=== PATIENT | female | born 1985 | race Caucasian/White ===

== ENCOUNTER 2016-05-09 10:30 | Inpatient (IN) | payer OTHER ==
[~2016-05-09] VITALS: Ht 162.6 cm; Wt 74.8 kg
[2016-05-09] VITALS (12 sets, daily range): BP systolic 107–140; BP diastolic 47–75; PULSE 49–82; RESP 17–18; TEMP 97.3–98; O2SAT 96–97
--- NOTE | 2016-05-09 15:27 | HHI.HP ---
HPI Chief Complaint Here for repeat Date Seen: May 09, 2016 Travel History International Travel<30 Days: No Contact w/Intl Traveler<30Days: No History of Present Illness HPI Patient is a 31 year old at 39-2/7 weeks gestation who presents today for repeat CXN. She denies any vaginal bleeding or discharge. No gush or leaking of fluid. No contractions. She has had some lower back pain over the past couple days. Positive movement. care with [facility]. History Past Medical History Medical History: Denies Significant Hx Obstetric History Obstetric History s/p Past Surgical History Narrative Surgical x 1 Family History Family History: Negative Social History Alcohol Use: No Tobacco Use: No Substance Abuse: No Allergies-Medications (Allergen,Severity, Reaction): Coded Allergies: No Known Allergies (Unverified , 05/09/16) Review of Systems Except as stated in HPI: all other systems reviewed are Neg General / Constitutional: No: Fever, Chills Eyes: No: Visual changes HENT: No: Headaches Cardiovascular: No: Chest Pain or Discomfort Respiratory: No: Short of Breath Gastrointestinal: No: Nausea, Vomiting, Abdominal Pain Genitourinary: Pelvic Pain, No: Discharge, Vaginal Bleeding Musculoskeletal: No: Edema Psychiatric: No: Substance Abuse Physical Exam Narrative GENERAL: Well-nourished, well-developed patient. SKIN: Warm and dry. HEAD: Normocephalic and atraumatic. EYES: No scleral icterus. No injection or drainage. ENT: No nasal drainage noted. Mucous membranes pink. Airway patent. NECK: Supple, trachea midline. No JVD. CARDIOVASCULAR: Regular rate and rhythm without murmurs, gallops, or rubs. RESPIRATORY: Breath sounds equal bilaterally. No accessory muscle use. ABDOMEN/GI: Abdomen soft, non-tender, bowel sounds present, no rebound, no guarding Gravid to 39 weeks size GENITOURINARY: Membranes: intact Uterine Contractions: irregular FHT's: Category: I Baseline: 140 Reactive: + Variability: moderate Decels: none EXTREMITIES: No cyanosis or edema. BACK: Nontender without obvious deformity. No CVA tenderness. NEUROLOGICAL: Awake and alert. Motor and sensory grossly within normal limits. Normal speech. Data Data Vital Signs Reviewed: Yes Orders Admit To Inpatient (05/09/16 ) Code Status (05/09/16 15:20) Vital Signs (Adult) .ON ADMISSION (05/09/16 15:20) Activity Oob Ad Ana (05/09/16 15:20) ^ Heart (05/09/16 15:20) Urinary Catheter Management CLAY.Q8H (05/09/16 15:20) ^ Preps (05/09/16 15:20) Scd / Jean / Foot Pump CLAY.QSHIFT (05/09/16 15:20) ^ Ultrasound For Locatio (05/09/16 15:20) Diet Npo (05/09/16 Dinner) Lactated Ringer's 1000 Ml Inj (Lr 1000 M (05/09/16 15:20) Lactated Ringer's 1000 Ml Inj (Lr 1000 M (05/09/16 15:50) Cefazolin 2 Gm Premix (Ancef 2 Gm Premix (05/09/16 16:30) Citric Acid-Sodium Citrate Liq (Bicitra (05/09/16 17:00) Type And Screen (05/09/16 15:20) Complete Blood Count With Diff (05/09/16 15:20) Assessment/Plan Assessment and Plan 31 year old at 39-2/7 weeks gestation. 1. IUP- Category I tracing, reassuring. 2. Repeat - will give 2g Ancef IV pre-operatively. 3. GBS negative dw Ana Rosa Ledezma MD R2 May 09, 2016 15:27
[2016-05-09] MEDS ORDERED: LACTATED RINGER'S 1000 ML INJ 1,000 ML IV SCH (16:00)
[2016-05-09] MEDS ORDERED: LACTATED RINGER'S 1000 ML INJ 1,000 ML IV ONE (16:00)
[2016-05-09] MEDS ORDERED: ceFAZolin 2 GM PREMIX 50 ML IV SCH (16:30)
--- NOTE | 2016-05-09 16:38 | HHI.HP ---
History & Physical H&P viviane History International Travel<30 Days: No Contact w/Intl Traveler<30Days: No Known Affected Area: No History of Present Illness HPI This patient is a 31-year-old at 3 9 weeks of [facility], presents now for consult. She had previous section with her first baby on an emergent basis and now wants a repeat . She has no complaints problems baby is active she has no pain bleeding or rupture the membranes. His had an uneventful course first have her care was in [place] and she speaks Khmer only, second half of her from about 30 weeks on has been here starting in late February. Patient has her records from her visits in [place] were only revisit she had an ultrasound and we have a 12 week ultrasound establishes her gestational criteria her due date is 05/14/16 Para: 1 : 2 History (Limited) History Obstetric History Obstetric History 1 Past Surgical History Narrative Surgical 1 Family History Family History: Negative Social History Alcohol Use: No Tobacco Use: No Substance Abuse: No Allergies-Medications Allergies-Medications ROS Review of Systems General / Constitutional: No: Fever, Weight Gain, Chills, Other Eyes: No: Diploplia, Blurred Vision, Visual changes, Pain, Photophobia HENT: No: Headaches, Vertigo, Lightheadedness Cardiovascular: No: Irregular Rhythm, Chest Pain or Discomfort, Palpitations, Tachycardia, Syncope, Varicosities, Edema, Cyanosis Respiratory: No: Cough, Short of Breath, Other Gastrointestinal: No: Nausea, Vomiting, Diarrhea Genitourinary: No: Decreased Urinary Output, Oliguria Musculoskeletal: No: Limited ROM, Weakness, Cramping, Edema, Pain Skin: No Rash, No Itching, No Dryness, No Lumps, No Change in Pigmentation, No Change in Nails, No Alopecia, No Lesions Neurologic: No: Weakness, Dizziness, Syncope, Focal Abnormalities, Coordination Problem, Headache, Slurred Speech, Seizures Psychiatric: No: Depression, Suicidal Ideations, Homicidal Ideation Endocrine: No: Heat Intolerance, Cold Intolerance, Polydipsia, Polyuria, Other Physical Exam Physical Exam Narrative GENERAL: Well-nourished, well-developed patient. SKIN: Warm and dry. HEAD: Normocephalic and atraumatic. EYES: No scleral icterus. No injection or drainage. ENT: No nasal drainage noted. Mucous membranes pink. Airway patent. NECK: Supple, trachea midline. No JVD. CARDIOVASCULAR: Regular rate and rhythm without murmurs, gallops, or rubs. RESPIRATORY: Breath sounds equal bilaterally. No accessory muscle use. BREASTS: Bilateral exam showed no masses , no retractions, no nipple discharge. ABDOMEN/GI: Abdomen soft, non-tender, bowel sounds present, no rebound, no guarding Gravid to [-term] weeks size Fundal Height: [-35 cm] Data Data [facility] MDM Interpretation(s) Patient is a 31-year-old previous 1 presenting for repeat section consultation. She has no complaints or problems baby is active is had an uneventful course first For care in [place] last half year and we have records from the [place] visits ultrasounds each time with 12 week scan is the earliest one confirming a due date of 05/14/16 Plan Plan schedule the patient for repeat on 05/09/16 which should be 39 weeks and several days. She understands that timing to present here 2 hours prior to surgery and be nothing by mouth after midnight the night before Disposition: 01 DISCHARGE HOME Condition: Stable Samy Madison II, MD Apr 21, 2016 13:52 Samy Madison II, MD May 09, 2016 16:38
[2016-05-09 16:42] LABS: AUTOMATED NEUTROPHIL # 4.6 TH/MM3 (1.8-7.7); BASOPHIL # 0.1 TH/MM3 (0-0.2); EOSINOPHIL # 0.1 TH/MM3 (0-0.4); HEMATOCRIT 39.2 % (35.0-46.0); LYMPH % 31.9 % (9.0-44.0); LYMPHOCYTE # 2.5 TH/MM3 (1.0-4.8); MEAN CELL VOLUME 88.9 FL (80.0-100.0); MEAN CORPUSCULAR HEMOGLOBIN 30.5 PG (27.0-34.0); MEAN CORPUSCULAR HGB CONC 34.3 % (32.0-36.0); MONO % 7.8 % (0.0-8.0); NEUT % 58.3 % (16.0-70.0); PLATELET COUNT 121 TH/MM3 (150-450); RED BLOOD COUNT 4.41 MIL/MM3 (4.00-5.30); RED CELL DISTRIBUTION WIDTH 13.1 % (11.6-17.2); WHITE BLOOD COUNT 7.9 TH/MM3 (4.0-11.0)
[2016-05-09] MEDS ORDERED: OXYTOCIN 10 UNIT/ML AMP ONE ×2 (16:48→17:00)
[2016-05-09 16:52] LABS: HEMO FLAGS AUTO DIFF
[2016-05-09] MEDS ORDERED: CITRIC ACID-SODIUM CITRATE LIQ 30 ML UDC PO SCH (17:00)
[2016-05-09] MEDS ORDERED: DICLOFENAC SODIUM 37.5 MG/ML VIAL IV PUSH ONE (17:00)
[2016-05-09 17:07] LABS: BACTERIA, URINE FEW /hpf; BLOOD, URINE SMALL (NEG); COMMENT (UR) CULT NOT INDICATED; CULTURE IF INDICATED CULT NOT INDICATED; GLUCOSE,URINE NEG (NEG); HYALINE CAST, URINE 2 /lpf (RARE); KETONE, URINE NEG (NEG); MUCUS URINE FEW /lpf (OCC); NITRITE,URINE NEG (NEG); PH, URINE 5.5 (5.0-8.5); SQUAMOUS EPITHELIAL CELL URINE 7 /hpf (0-5); URINE COLOR YELLOW (YELLW/STRAW)
[2016-05-09 17:40] LABS: SCAN/DIFF AUTO DIFF CONFIRMED
[2016-05-09] MEDS ORDERED: MORPHINE SULFATE PF 5 MG/10 ML VIAL ONE (18:45)
[2016-05-09] MEDS ORDERED: SODIUM CHLORIDE 0.9% FLUSH 5 ML FLUSH IV PRN (19:00)
[2016-05-09] MEDS ORDERED: OXYTOCIN 30 UNITS-500ML PREMIX 500 ML IV ONE (19:00)
[2016-05-09] MEDS ORDERED: ACETAMINOPHEN 325 MG TAB PO PRN (19:00)
[2016-05-09] MEDS ORDERED: ONDANSETRON HCL 4 MG/2 ML VIAL IV PUSH PRN (19:00)
[2016-05-09] MEDS ORDERED: ZOLPIDEM TARTRATE 5 MG TAB PO PRN (19:00)
[2016-05-09] MEDS ORDERED: DOCUSATE SODIUM 50 MG/SENNA 8.6 MG TAB PO PRN (19:00)
[2016-05-09] MEDS ORDERED: oxyCODONE/ACETAMINOPHEN 5 MG/325 MG TAB PO PRN (19:00)
[2016-05-09] MEDS ORDERED: LACTATED RINGER'S 1,000 ML BAG IV ONE (19:11)
[2016-05-09] MEDS ORDERED: ONDANSETRON HCL 4 MG/2 ML VIAL IV PUSH ONE (19:11)
[2016-05-09] MEDS ORDERED: EPIDURAL-NO SYSTEMIC NARCOTICS XX PRN (20:30)
[2016-05-09] MEDS ORDERED: EPIDURAL-DO NOT ADMINISTER ANTICOAGULANTS XX PRN (20:30)
[2016-05-09] MEDS ORDERED: EPIDURAL-DIPHENHYDRAMINE HCL 50 MG CAP PO PRN (20:30)
[2016-05-09] MEDS ORDERED: EPIDURAL-NALOXONE HCL 0.4 MG/ML AMP IV PRN (20:30)
[2016-05-09] MEDS ORDERED: EPIDURAL-DIPHENHYDRAMINE HCL 50 MG/ML VIAL IV PUSH PRN (20:30)
[2016-05-09] MEDS ORDERED: SODIUM CHLORIDE 0.9% FLUSH 5 ML FLUSH IV SCH (21:00)
[2016-05-10] MEDS ORDERED: LACTATED RINGER'S 1000 ML INJ 1,000 ML IV SCH
[2016-05-10 00:11] VITALS: BP 114/62; PULSE 49; RESP 17; TEMP 97.3
[2016-05-10 03:54] VITALS: BP_SYST 104; BP_SYST 110; BP_DIAS 57; BP_DIAS 68; PULSE 62; PULSE 65; RESP 17; RESP 18; TEMP 98.3
[2016-05-10] MEDS ORDERED: OXYTOCIN 30 UNITS-500ML PREMIX 500 ML IV PRN (05:00)
[2016-05-10 06:04] LABS: BASOPHIL % 0.4 % (0.0-2.0); EOSINOPHIL # 0.1 TH/MM3 (0-0.4); EOSINOPHIL % 0.9 % (0.0-4.0); HEMATOCRIT 34.6 % (35.0-46.0); LYMPH % 17.1 % (9.0-44.0); LYMPHOCYTE # 1.6 TH/MM3 (1.0-4.8); MEAN CELL VOLUME 88.9 FL (80.0-100.0); MEAN CORPUSCULAR HEMOGLOBIN 30.8 PG (27.0-34.0); MEAN CORPUSCULAR HGB CONC 34.6 % (32.0-36.0); MONO % 6.7 % (0.0-8.0); NEUT % 74.9 % (16.0-70.0); PLATELET COUNT 89 TH/MM3 (150-450); RED BLOOD COUNT 3.89 MIL/MM3 (4.00-5.30); RED CELL DISTRIBUTION WIDTH 12.7 % (11.6-17.2); WHITE BLOOD COUNT 9.4 TH/MM3 (4.0-11.0)
[2016-05-10 06:12] LABS: APTT (PATIENT) 27.1 SEC (24.3-30.1); INTERNATIONAL NORMALIZED RATIO 0.9 RATIO
[2016-05-10 06:20] LABS: HEMO FLAGS AUTO DIFF
[2016-05-10 07:39] LABS: PLATELET ESTIMATE SMEAR LOW (NORMAL); PLATELET MORPHOLOGY ENLARGED (NORMAL); SCAN/DIFF AUTO DIFF CONFIRMED
--- NOTE | 2016-05-10 07:46 | HHI.OB ---
Subjective Post Operative Day: 1 Remarks Postoperative day number 1. AFVSS overnight. Pain controlled. Incision not draining. Decreased lochia. Denies dysuria. No breast tenderness. She is feeding the baby via breast. Appetite good. No nausea or vomiting. Positive flatus. Negative bowel movement. Ambulating well. Denies calf pain, shortness of breath, or cough. Otherwise, she is doing well this morning and has no other complaints. Objective Vitals/I&O Vital Signs Date Time Temp Pulse Resp B/P Pulse Ox O2 Delivery O2 Flow Rate FiO2 05/10/16 03:54 98.3 05/10/16 03:54 62 17 05/10/16 03:54 104/57 05/10/16 03:54 65 18 110/68 05/10/16 00:11 97.3 17 05/10/16 00:11 49 114/62 05/09/16 20:40 97.7 52 18 125/72 05/09/16 19:35 97.3 05/09/16 19:32 140/47 05/09/16 19:32 97 05/09/16 19:31 49 05/09/16 19:31 18 05/09/16 19:17 96 05/09/16 19:16 107/58 05/09/16 19:14 18 05/09/16 19:13 51 05/09/16 19:04 57 18 126/72 96 05/09/16 18:54 53 138/75 05/09/16 18:54 53 138/75 05/09/16 18:54 98.0 17 97 05/09/16 18:54 98.0 17 97 05/09/16 16:00 82 123/67 05/09/16 15:55 70 130/74 Result Diagram: 05/10/16 0436 Objective Remarks GENERAL: Well-nourished, well-developed patient. CARDIOVASCULAR: Regular rate and rhythm without murmurs, gallops, or rubs. RESPIRATORY: Breath sounds equal bilaterally. No accessory muscle use. ABDOMEN/GI: Abdomen soft, non-tender, bowel sounds present. Incision: Clean, dry and intact. With juan Fundus: Firm, non-tender at umbilicus. GENITOURINARY: Light to moderate bleeding. EXTREMITIES: No cyanosis or edema, non-tender, without signs of DVT. Medications and IVs Current Medications Medications (Trade) Dose Ordered Sig/Berhane Route Start Time Stop Time Status Last Admin (Lr 1000 ml Inj) 1,000 ml @ 100 mls/hr Q10H IV 05/10/16 00:00 05/10/16 19:59 05/10/16 05:01 (NS Flush) 2 ml BID IV 05/09/16 21:00 (NS Flush) 2 ml UNSCH PRN IV 05/09/16 19:00 (Mylicon Chew) 80 mg QID PRN PO 05/09/16 19:00 (Tylenol) 650 mg Q6H PRN PO 05/09/16 19:00 (Motrin) 600 mg Q6H PRN PO 05/09/16 19:00 (Percocet 5-325 Mg) 1 tab Q4H PRN PO 05/09/16 19:00 Oxycodone/ Acetaminophen 2 tab 2 tab Q4H PRN PO 05/09/16 19:00 (Ancef Inj/NS Inj) 100 ml @ 200 mls/hr Q8H IV 05/10/16 03:00 05/10/16 11:29 05/10/16 05:02 (Juliane-Colace) 2 tab Q12H PRN PO 05/09/16 19:00 (Ambien) 5 mg HS PRN PO 05/09/16 19:00 (M-M-R Ii Inj) 0.5 ml ONCE ONCE SQ 05/10/16 16:00 05/10/16 16:01 (Boostrix Inj) 0.5 ml ONCE ONCE IM 05/10/16 16:00 05/10/16 16:01 (Zofran Inj) 4 mg Q6H PRN IV PUSH 05/09/16 19:00 Miscellaneous Information NO SYSTEMIC NARCOTICS TO BE GIVEN FO... UNSCH PRN XX 05/09/16 20:30 05/10/16 20:29 (Narcan Inj) 0.4 mg UNSCH PRN IV 05/09/16 20:30 05/10/16 20:29 (Benadryl Inj) 25 mg Q6H PRN IV PUSH 05/09/16 20:30 05/10/16 20:29 05/10/16 00:40 (Benadryl) 50 mg Q6H PRN PO 05/09/16 20:30 05/10/16 20:29 Miscellaneous Information ALL NURSING DEPARTMENTS UNSCH PRN XX 05/09/16 20:30 05/10/16 20:29 Assessment/Plan Problem List: (1) care following delivery Assessment and Plan 31 y/o female who is POD# 1 s/p CXN. -Continue routine care. -Percocet and Motrin PRN pain. -Encouraged OOB. Advised pelvic rest for 6 wks. Will need a f/u appt. in 1 wk for incision check. -Re: ctrl, she currently undecided. -D/c in 1-2 more days. [facility] OB attending Discharge Planning Discharged home next one to 2 days Ab Rosario MD R2 May 10, 2016 07:46
[2016-05-10] MEDS: oxyCODONE/ACETAMINOPHEN 5 MG/325 MG TAB PO PRN ×4 (07:49→23:30)
[2016-05-10] MEDS: IBUPROFEN 600 MG TAB PO PRN ×3 (07:49→19:27)
[2016-05-10 08:30] VITALS: BP 116/62; PULSE 67; RESP 17; TEMP 99.5
[2016-05-10] MEDS ORDERED: DIPHTH/TETANUS/ACEL PERTUSSIS (BOOSTER) 0.5 ML VIAL/PFS IM ONE (16:00)
[2016-05-10] MEDS ORDERED: MEASLES, MUMPS, RUBELLA VACCINE 0.5 ML VIAL SQ ONE (16:00)
[2016-05-10] MEDS: SIMETHICONE 80 MG CHEWABLE TAB PO PRN (17:20)
[2016-05-10 19:52] VITALS: BP 127/81; PULSE 103; RESP 18; TEMP 98.9
[2016-05-10 23:58] VITALS: BP 104/61; PULSE 84; RESP 18; TEMP 98.1
[2016-05-11] MEDS: IBUPROFEN 600 MG TAB PO PRN ×2 (04:12→11:23)
[2016-05-11] MEDS: oxyCODONE/ACETAMINOPHEN 5 MG/325 MG TAB PO PRN ×2 (04:13→11:23)
--- NOTE | 2016-05-11 07:19 | HHI.OB ---
Subjective Post Operative Day: 2 Remarks Postoperative day number 2. AFVSS overnight. Pain controlled. Incision not draining. Decreased lochia. Denies dysuria. No breast tenderness. She is feeding the baby via breast. Appetite good. No nausea or vomiting. Positive flatus. Negative bowel movement. Ambulating well. Denies calf pain, shortness of breath, or cough. Otherwise, she is doing well this morning and has no other complaints. Objective Vitals/I&O Vital Signs Date Time Temp Pulse Resp B/P Pulse Ox O2 Delivery O2 Flow Rate FiO2 05/10/16 23:58 98.1 18 05/10/16 23:58 84 104/61 05/10/16 19:52 98.9 103 18 05/10/16 19:52 127/81 05/10/16 08:30 99.5 67 17 116/62 Result Diagram: 05/10/16 0436 Objective Remarks GENERAL: Well-nourished, well-developed patient. CARDIOVASCULAR: Regular rate and rhythm without murmurs, gallops, or rubs. RESPIRATORY: Breath sounds equal bilaterally. No accessory muscle use. ABDOMEN/GI: Abdomen soft, non-tender, bowel sounds present. Incision: Clean, dry and intact. With juan Fundus: Firm, non-tender at umbilicus. GENITOURINARY: Light to moderate bleeding. EXTREMITIES: No cyanosis or edema, non-tender, without signs of DVT. Medications and IVs Current Medications Medications (Trade) Dose Ordered Sig/Berhane Route Start Time Stop Time Status Last Admin (NS Flush) 2 ml BID IV 05/09/16 21:00 (NS Flush) 2 ml UNSCH PRN IV 05/09/16 19:00 (Mylicon Chew) 80 mg QID PRN PO 05/09/16 19:00 05/10/16 17:20 (Tylenol) 650 mg Q6H PRN PO 05/09/16 19:00 (Motrin) 600 mg Q6H PRN PO 05/09/16 19:00 05/11/16 04:12 (Percocet 5-325 Mg) 1 tab Q4H PRN PO 05/09/16 19:00 05/11/16 04:13 (Percocet 5-325 Mg) 2 tab Q4H PRN PO 05/09/16 19:00 (Juliane-Colace) 2 tab Q12H PRN PO 05/09/16 19:00 05/10/16 19:28 (Ambien) 5 mg HS PRN PO 05/09/16 19:00 (Zofran Inj) 4 mg Q6H PRN IV PUSH 05/09/16 19:00 Assessment/Plan Problem List: (1) care following delivery Assessment and Plan 31 y/o female who is POD# 2 s/p CXN. -Continue routine care. -Percocet and Motrin PRN pain. -Encouraged OOB. Advised pelvic rest for 6 wks. Will need a f/u appt. in 1 wk for incision check. -Re: ctrl, she currently undecided. -D/c anticipated for tomorrow. [facility] OB attending Discharge Planning Discharged home anticipated for tomorrow Ab Rosario MD R2 May 11, 2016 07:19
[2016-05-11] MEDS ORDERED: IBUP-232 PO (07:20)
[2016-05-11] MEDS ORDERED: SENN1TAB PO (07:20)
[2016-05-11] MEDS ORDERED: OXYC1TAB63 PO (07:20)
[2016-05-11 10:50] VITALS: BP 118/80; PULSE 82; RESP 18; TEMP 98.4
[2016-05-11] MEDS: SIMETHICONE 80 MG CHEWABLE TAB PO PRN (11:23)
[2016-05-11 12:15] LABS: HEMATOCRIT 32.7 % (35.0-46.0); MEAN CELL VOLUME 88.2 FL (80.0-100.0); MEAN CORPUSCULAR HGB CONC 35.2 % (32.0-36.0); PLATELET COUNT 121 TH/MM3 (150-450); RED BLOOD COUNT 3.71 MIL/MM3 (4.00-5.30); RED CELL DISTRIBUTION WIDTH 12.8 % (11.6-17.2); REVIEW FLAG FINAL; WHITE BLOOD COUNT 9.2 TH/MM3 (4.0-11.0)
--- NOTE | 2016-05-11 14:28 | HHI.DCPOC ---
Discharge Care Plan Diagnosis: (1) care following delivery Report Symptoms to Your Doctor -Temperate above 100.5 degrees -Redness, of incision or excessive or foul smelling drainage -Unusual pain or calf pain -Increased vaginal bleeding -Painful or difficulty urinating -Feelings of extreme sadness or anxiety after 2 weeks Goals to Promote Your Health To maintain your health at the optimal level follow up with your OB provider Directions to Meet Your Goals Take your medications as prescribed Follow your dietary instruction Follow activity as directed Ensure plenty of rest for recovery Drink fluids for hydration Keep your appointments as scheduled Take your immunizations and boosters as scheduled If your symptoms worsen call your PCP, if no PCP go to Urgent Care Center or Emergency Room Smoking is Dangerous to Your Health. Avoid second hand smoke Call the 24-hour crisis hotline for domestic abuse at Ramone Bell MD R1 May 11, 2016 14:28
--- NOTE | 2016-05-12 06:56 | MP ---
cc: AFSHAN MADISON MD DATE OF SURGERY 05/09/2016 PREOPERATIVE DIAGNOSES Term intrauterine . Previous section, for repeat. POSTOPERATIVE DIAGNOSES Term intrauterine . Previous section, for repeat. PROCEDURE PERFORMED Repeat low transverse section. SURGEON Afshan Madison MD [employer] TESTER Dr. Alatorre, [facility] ANESTHESIA Spinal. PREOP NOTE The patient is a 31-year-old , G2, now P2, who was at 39 weeks and presented for repeat section. There were no complications in . She had [facility] and is now for repeat . PROCEDURE The patient was taken to the operating room and placed in the supine position on the operating room table. Adequate spinal anesthesia was administered. She was prepped and draped for abdominal surgery. The previous Pfannenstiel incision was excised out and cast off. The incision was carried to the fascia and the fascia dissected laterally off the rectus muscle, the peritoneal cavity entered sharply through a midline incision. The incision was extended superiorly and inferiorly in the peritoneal cavity. The bladder was dissected sharply off the lower uterine segment and placed under bladder blade. A transverse hysterotomy was made and extended bluntly bilaterally and a male infant was delivered at 5:45 p.m., weight 3210 grams, Apgars of 8 and 9. There were no complications. Cord blood obtained. Placenta manually extracted. The uterus was exteriorized and then the hysterotomy was closed with a running layer of 0 chromic followed by imbricating suture of same. Several bleeding spots on the incision line were oversewn with [id number] sutures and this achieved good hemostasis. The bladder also where it had been taken down was having bleeder spots that were cauterized and several small [id number] achieved hemostasis. Normal tubes and ovaries. The uterus was elevated, blood suctioned from the cul-de-sac and gutters and the uterus was replaced in the peritoneal cavity. The rectus muscle was reapproximated with stick ties and 2-0 Vicryl. The fascia was closed in a running layer of 0 Vicryl and the subcutaneous tissue was reapproximated with a running 3-0 plain suture. The skin was closed with juan and a pressure dressing was applied. Estimated blood loss was 500 cc. There were no complications. Sponge, needle and instrument counts were correct x 2 and the patient went to Recovery in stable condition. MD PEG Umana/TRES /7:09 PM /6:38 AM
== END 2016-05-11 15:20 | disposition home or self-care (01) | DRG 766 ==
LOC: H2EB 15:01 → H1EA 20:04
PROVIDERS: ADMIT Obstetrics & Gynecology Maternal & Fetal Medicine; ATTEND Obstetrics & Gynecology Maternal & Fetal Medicine
PROC: 10D00Z1 Extraction of Products of Conception, Low, Open Approach (ICD-10-PCS; principal; 2016-05-09)
DX: O34.211 Maternal care for low transverse scar from previous cesarean delivery (principal); Z3A.39 39 weeks gestation of pregnancy; Z37.0 Single live birth
CPT/HCPCS: 59025; 81001; 85025; 85027; 85610; 85730; 86850; 86900; 86901; J0690; J1130; J1200; J2274; J2405; J2590; J7120